=== PATIENT | male | born 2000 | race Caucasian/White ===

== ENCOUNTER 2018-02-05 15:52 | Emergency (ER) | payer OTHER ==
[~2018-02-05] VITALS: Ht 190.5 cm; Wt 135.5 kg
[2018-02-05 17:12] LABS: APPEARANCE CLEAR ((CLEAR)); BILIRUBIN NEGATIVE; BLOOD NEGATIVE; COLOR YELLOW ((YELLOW)); GLUCOSE (STRIP) NEGATIVE; KETONES NEGATIVE; LEUKOCYTES NEGATIVE; NITRITE NEGATIVE; PROTEIN (STRIP) NEGATIVE; SPECIFIC GRAVITY 1.026 (1.000-1.030); UCUL ADDED? NO
[2018-02-05 17:20] LABS: BASOPHIL (%) 0.2 % (0-1); EOSINOPHIL (%) 1.8 % (0-5); EOSINOPHIL COUNT 0.2 K/uL (0-0.3); IMMATURE GRANULOCYTE (%) 0.4 % (0.0-0.7); LYMPHOCYTE (%) 8.4 % (15-42); LYMPHOCYTE COUNT 0.9 K/uL (1.0-2.8); MCH 30.7 PG (29.0-34.0); MCHC 34.8 G/DL (30.0-36.0); MCV 88.1 FL (86-99); MONOCYTE COUNT 0.5 K/uL (0-0.8); NEUTROPHIL (%) 85.2 % (45-76); NEUTROPHIL COUNT 9.5 K/uL (1.8-6.4); PLATELET COUNT 223 K/uL (156-360); RBC DIS.WIDTH-CV 12.7 % (11.8-14.6); RBC DIS.WIDTH-SD 41.1 % (39-53); RED BLOOD COUNT 5.22 M/uL (4.00-5.50); WHITE BLOOD COUNT 11.1 K/uL (4.1-10.2)
[2018-02-05 17:22] LABS: AMPHETAMINE NEGATIVE (500 ng/mL); BARBITURATES NEGATIVE (200 ng/mL); BENZODIAZEPINES NEGATIVE (150 ng/mL); BUPRENORPHINE NEGATIVE (10 ng/mL); COCAINE NEGATIVE (150 ng/mL); METHADONE NEGATIVE (200 ng/mL); METHAMPHETAMINE NEGATIVE (500 ng/mL); OPIATES (MORPHINE) NEGATIVE (100 ng/mL); OXYCODONE NEGATIVE (100 ng/mL); PHENCYCLIDINE NEGATIVE (25 ng/mL); PROPOXYPHENE NEGATIVE (300 ng/mL); THC CANNABINOIDS NEGATIVE (50 ng/mL); TRICYCLIC ANTIDEPRESSANTS NEGATIVE (300 ng/mL)
[2018-02-05 17:35] LABS: ALBUMIN 4.3 g/dL (3.2-4.8)
[2018-02-05 17:36] LABS: CHLORIDE 103 mEq/L (99-109); POTASSIUM 4.3 mEq/L (3.7-5.4); SODIUM 140 mEq/L (136-147)
[2018-02-05 17:38] LABS: GLUCOSE 95 mg/dL (70-99); TOTAL PROTEIN 7.1 g/dL (6.4-8.3)
[2018-02-05 17:40] LABS: TOTAL BILIRUBIN 1.7 mg/dL (0.0-1.0)
[2018-02-05 17:41] LABS: ALKALINE PHOSPHATASE 107 IU/L (3-129)
[2018-02-05 17:42] LABS: GFR ESTIMATE (CALCULATED) > 59 mL/min/ (58.99-99999)
[2018-02-05 17:43] LABS: AST (GOT) 27 IU/L (2-34); UREA NITROGEN (BUN) 12 mg/dL (9-23)
[2018-02-05 17:44] LABS: ALT (GPT) 36 IU/L (3-49)
[2018-02-05 17:45] LABS: CREATINE KINASE 272 IU/L (1-294); LIPASE 19 U/L (1.0-51.0)
[2018-02-05 19:10] VITALS: BP 109/54
== END 2018-02-05 19:18 | disposition home or self-care (01) ==
LOC: EME 15:52
PROVIDERS: Emergency Medicine
DX: E86.0 Dehydration (principal); R55 Syncope and collapse; R10.31 Right lower quadrant pain; F90.9 Attention-deficit hyperactivity disorder, unspecified type
CPT/HCPCS: 80053; 81003; 82550; 83690; 85025; 93005; 99281; 99285; J7030